=== PATIENT | female | born 1995 | race Caucasian/White ===

== ENCOUNTER 2016-06-28 13:46 | Emergency (ER) | payer MEDICAID ==
[~2016-06-28] VITALS: Ht 157.5 cm; Wt 50.0 kg
[~2016-06-28 13:46] MED LIST: FERR27TA PO; PREN1TAB49 PO; PRO20 PO
[2016-06-28 13:56] VITALS: Ht 157.5 cm; Wt 50.0 kg
[2016-06-28] MEDS ORDERED: AMO500 PO (14:43)
[2016-06-28] MEDS ORDERED: PRED20TA PO (14:43)
--- NOTE | 2016-06-28 14:47 | ERD ---
ER Documentation Chief Complaint Date/Time DATE: 06/28/16 TIME: 14:46 Chief Complaint Complains of a sorethroat x 3 days HPI Patient is a 20-year-old female who is otherwise healthy complaining of sick 3 days of swollen tonsils and sore throat. Pain is 8 out of 10 and worse with swallowing but she is tolerating oral intake. Denies fever. Denies cough. Denies abdominal pain. Denies any chest pain or shortness of breath. ROS All systems reviewed and are negative except as per history of present illness. Medications Home Meds Active Scripts Prednisone* (Prednisone*) 20 Mg Tab, 40 MG PO DAILY for 4 Days, TAB Prov:HOLLY SKINNER PA-C 06/28/16 Amoxicillin* (Amoxicillin*) 500 Mg Cap, 500 MG PO BID for 7 Days, CAP Prov:HOLLY SKINNER PA-C 06/28/16 Reported Medications Nifedipine* (Procardia*) 20 Mg Cap, 20 MG PO 07/15/12 Ferrous Sulfate (Iron) 1 Tab Tablet, 1 TAB PO DAILY 05/07/12 Vits W-Ca,Fe,Fa(<1MG) () 1 Tab Tablet, 1 TAB PO DAILY 05/07/12 Allergies Allergies: Coded Allergies: No Known Allergy (Verified , 07/26/12) FmHx Family History: No diabetes Physical Exam Vitals Vital Signs Date Time Temp Pulse Resp B/P Pulse Ox O2 Delivery O2 Flow Rate FiO2 06/28/16 13:56 98.8 127 20 154/77 98 Physical Exam General: well developed, well nourished, alert, nontoxic, no distress Head: normocephalic, atraumatic Neck: Supple, nontender, no lymphadenopathy, no midline tenderness Ears: no tenderness over mastoids bilaterally, TMs nonerythematous, no exudates in canal Oropharynx: Bilateral tonsillar erythema and edema with scant exudate, uvula midline, no kissing tonsils Respiratory: Clear to auscaultation bilaterally, speaks in full sentences, no use of accesory muscles or labored breathing, no rales, ronchi, or wheezing Cardiovascular: RRR, No murmurs Procedures/MDM 20-year-old female presents with exudative pharyngitis. Her examination is otherwise normal she is tolerating oral intake. I doubt peritonsillar abscess. She is afebrile but does have elevated heart rate 127. I reviewed this case with and we agree she is suitable for outpatient management with antibiotic outpatient therapy. Patient was given prescription for amoxicillin and a short course of prednisone. Recommended this patient follow up with her primary care doctor within 48 hours or return to the emergency room for any worsening of symptoms. However this time I do believe there is suitable for outpatient management. I answered all their questions and they agreed with the plan and were discharged home. Departure Diagnosis: Primary Impression: Pharyngitis Condition: Stable Patient Instructions: Pharyngitis, Strep (Presumed) Additional Instructions: Call your primary care doctor TOMORROW for an appointment during the next 1-2 days.See the doctor sooner or return here if your condition worsens before your appointment time. HOLLY SKINNER PA-C Jun 28, 2016 14:47
== END 2016-06-28 14:43 | disposition home or self-care (01) ==
LOC: FTE 13:46 → E/R 14:43
DX: J02.9 Acute pharyngitis, unspecified (principal)
CPT/HCPCS: 99284

== ENCOUNTER 2016-08-28 19:16 | Emergency (ER) | payer MEDICAID ==
[~2016-08-28] VITALS: Ht 160 cm; Wt 49.5 kg
[~2016-08-28 19:16] MED LIST changes: +AMO500 PO; +PRED20TA PO
[2016-08-28 19:21] VITALS: Ht 160 cm; Wt 49.5 kg
[2016-08-28] MEDS ORDERED: ONDANSETRON (ODT) 4 MG TAB ODT STA (19:49)
[2016-08-28] MEDS ORDERED: ACETAMINOPHEN 325 MG TAB PO ONE (20:00)
--- NOTE | 2016-08-28 20:29 | RADRPT ---
PROCEDURE: US Pelvis. CLINICAL INDICATION: Pelvic pain and fullness. TECHNIQUE: Multiple sonographic images of the pelvis were obtained utilizing a transabdominal and endovaginal technique. The images were reviewed on a PACS workstation. COMPARISON: None. FINDINGS: The uterus is visualized and measures 7.3 cm sagittal by 3.6 cm AP by 4.6 cm transverse.. The endome trial echo complex is normal and measures 4.7 mm.. There is no evidence for free fluid. The right ov madhuri has a normal echotexture and measures 2.4 x 1.5 x 1.8 cm . The left ovary has a normal echotext ure and measures 5 x 3.2 x 3.6 cm. No adnexal masses are noted. IMPRESSION: Unremarkable pelvic ultrasound. RPTAT:AAJJ Physician Christian Date Time Electronically viewed and signed by Physician Christian on 08/28/2016 20:29 DICK/
[2016-08-28 20:42] LABS: URINE BLOOD (Dip) POC Trace-intact (NEGATIVE)
[2016-08-28] MEDS ORDERED: ONDA4TAB14 PO (21:23)
[2016-08-28] MEDS ORDERED: ACET500C5 PO (21:23)
--- NOTE | 2016-08-28 21:39 | ERD ---
ER Documentation Chief Complaint Date/Time DATE: 08/28/16 TIME: 21:35 Chief Complaint LLQ abd pain x 1 month HPI Patient is a 21-year-old female with no past medical history who presents to the ED with left-sided pelvic pain on and off for the last 2 months. She states that she has pain with intercourse occasionally. She denies dysuria urgency. Patient is A0. Denies vaginal bleeding. States that her last normal menstrual period was . She states that she could possibly be but is not sure. She would like to get tested for . She denies headache or dizziness, neck pain or neck stiffness. Denies chest pain, cough, shortness of breath or difficulty breathing. States that she is occasionally nauseous with no vomiting. Last bowel movement was today. Denies diarrhea or constipation. No other complaints. Denies fever or chills. ROS All systems reviewed and are negative except as per history of present illness. Medications Home Meds Active Scripts Ondansetron (Ondansetron Odt) 4 Mg Tab.rapdis, 4 MG PO Q6H Y for NAUSEA AND/OR VOMITING, #10 TAB Prov:UNA PANDEY PA-C 08/28/16 Acetaminophen* (Tylophen*) 500 Mg Capsule, 1 CAP PO Q6H Y for PAIN AND OR ELEVATED TEMP, #20 CAP Prov:UNA PANDEY PA-C 08/28/16 Prednisone* (Prednisone*) 20 Mg Tab, 40 MG PO DAILY for 4 Days, TAB Prov:HOLLY SKINNER PA-C 06/28/16 Amoxicillin* (Amoxicillin*) 500 Mg Cap, 500 MG PO BID for 7 Days, CAP Prov:HOLLY SKINNER PA-C 06/28/16 Reported Medications Nifedipine* (Procardia*) 20 Mg Cap, 20 MG PO 07/15/12 Ferrous Sulfate (Iron) 1 Tab Tablet, 1 TAB PO DAILY 05/07/12 Vits W-Ca,Fe,Fa(<1MG) () 1 Tab Tablet, 1 TAB PO DAILY 05/07/12 Allergies Allergies: Coded Allergies: No Known Allergy (Verified , 07/26/12) PMhx/Soc History of Surgery: Yes (vag I&D 01/01/16) Anesthesia Reaction: No Hx Neurological Disorder: No Hx Respiratory Disorders: No Hx Cardiac Disorders: No Hx Psychiatric Problems: No Hx Miscellaneous Medical Probl: No (-2 Para-1 abd-1) Hx Alcohol Use: No Hx Substance Use: No Hx Tobacco Use: No Smoking Status: Never smoker FmHx Family History: No coronary disease, No diabetes, No other Physical Exam Vitals Vital Signs Date Time Temp Pulse Resp B/P Pulse Ox O2 Delivery O2 Flow Rate FiO2 08/28/16 19:21 98.4 124 20 142/65 100 Physical Exam GENERAL: Well-developed, well-nourished female. Appears in no acute distress. HEAD: Normocephalic, atraumatic. EYES: Pupils are equally reactive bilaterally. EOMs grossly intact. No conjunctival erythema. ENT: Moist mucous membranes. No uvula deviation. No kissing tonsils. No exudates. NECK: Supple. No lymphadenopathy or thyromegaly. No meningismus. negative kernig. negative brudinski. LUNG: Clear to auscultation bilaterally. No rhonchi, wheezing, rales or coarse breath sounds. HEART: Regular rate and rhythm. No murmurs, rubs or gallops. ABDOMEN: No scars, ecchymosis or rashes noted. Soft, nontender, and nondistended. Positive bowel sounds in all four quadrants. No rebound tenderness , no guarding. (-) McBurneys point tenderness. No CVA tenderness. BACK: No midline tenderness. Extremities: Equal pulses bilaterally. No peripheral clubbing, cyanosis or edema. No unilateral leg swelling. NEUROLOGIC: Alert and oriented. Moving all four extremities. 5/5 strength in all extremities. Normal speech. Steady gait. SKIN: Normal color. Warm and dry. No rashes or lesions. Capillary refill < 2 seconds Results 24 hrs Laboratory Tests Test 08/28/16 20:45 Bedside Urine pH (LAB) 7.0 Bedside Urine Protein (LAB) Negative Bedside Urine Glucose (UA) Negative Bedside Urine Ketones (LAB) Negative Bedside Urine Blood Trace-intact Bedside Urine Nitrite (LAB) Negative Bedside Urine Leukocyte Esterase (L Negative Current Medications Medications (Trade) Dose Ordered Sig/Dom Route PRN Reason Start Time Stop Time Status Last Admin Dose Admin Acetaminophen (Tylenol Tab) 650 mg ONCE ONCE PO 08/28/16 20:00 08/28/16 20:01 DC 08/28/16 20:20 Ondansetron HCl (Zofran Odt) 4 mg ONCE STAT ODT 08/28/16 19:49 08/28/16 19:51 DC 08/28/16 20:19 Procedures/MDM ER COURSE: I kept the patient and/or family informed of laboratory and diagnostic imaging results throughout the emergency room course. IMAGING STUDIES [place] [id number] Radiology Main Line: [phone] DIAGNOSTIC IMAGING REPORT Patient: TERESITA SIMMONS : 1995 Age: 21 Sex: F MR #: [id number] DOS: 08/28/16 1951 Ordering MD: UNA PANDEY PA-C Location: [facility] Room/Bed: PROCEDURE: US Pelvis. CLINICAL INDICATION: Pelvic pain and fullness. TECHNIQUE: Multiple sonographic images of the pelvis were obtained utilizing a transabdominal and endovaginal technique. The images were reviewed on a PACS workstation. COMPARISON: None. FINDINGS: The uterus is visualized and measures 7.3 cm sagittal by 3.6 cm AP by 4.6 cm transverse.. The endometrial echo complex is normal and measures 4.7 mm.. There is no evidence for free fluid. The right ovary has a normal echotexture and measures 2.4 x 1.5 x 1.8 cm . The left ovary has a normal echotexture and measures 5 x 3.2 x 3.6 cm. No adnexal masses are noted. IMPRESSION: Unremarkable pelvic ultrasound. RPTAT:AAJJ Physician Crhistian Date Time Electronically viewed and signed by Physician Christian on 08/28/2016 20:29 JM/ CC: UNA PANDEY PA-C medications Tylenol, Zofran. Tolerated well with no adverse reaction. LABORATORY STUDIES Urine dip was negative for nitrites, leukocytes or hematuria. Negative test MEDICAL DECISION MAKING: This is a 21-year-old female who presents with pelvic pain 2 months. Vital signs were reviewed. Patient is afebrile. Patient is not hypoxic. Patient is not toxic or ill-appearing. Patient's ultrasound is read by radiologist unremarkable. Patient had a negative training test and her urine was negative for nitrites, leukocytes or hematuria. Patient has pelvic pain of unknown etiology. Low suspicion for ovarian torsion, PID, tuboovarian abscess, ectopic , bowel obstruction, pyelonephritis, UTI, appendicitis, cervicitis, septic , molar , HELLP syndrome, preeclampsia, eclampsia, placenta previa, placenta abruptia. Low suspicion for ACS, AAA, perforated ulcer, bowel obstruction, cholecystitis, choledocholithiasis, cholangitis, pancreatitis, hepatic abscess, appendicitis, diverticulitis, gastroenteritis, hepatitis, peptic ulcer disease, HELLP syndrome. DISCHARGE: At this time, patient is stable for discharge and outpatient management with no new complaints during the ER course. Patient was sent home with Tylenol, Zofran and names of clinics to follow-up with. Copy of all imaging reports was given to patient.. Patient will be discharged home with instructions to recheck for new or worsening symptoms such as fever, nausea, weakness, LOC and to follow up with primary care in the next 1-2 days. Patient was advised to return to the ER for any new or worsening symptoms. Plan was discussed and patient and/or family understands and agrees. Home instructions were given. Departure Diagnosis: Primary Impression: Pelvic pain Condition: Stable Patient Instructions: Pelvic Pain, Unknown Cause Referrals: [facility] YOU HAVE RECEIVED A MEDICAL SCREENING EXAM AND THE RESULTS INDICATE THAT YOU DO NOT HAVE A CONDITION THAT REQUIRES URGENT TREATMENT IN THE EMERGENCY DEPARTMENT. FURTHER EVALUATION AND TREATMENT OF YOUR CONDITION CAN WAIT UNTIL YOU ARE SEEN IN YOUR DOCTORS OFFICE WITHIN THE NEXT 1-2 DAYS. IT IS YOUR RESPONSIBILITY TO MAKE AN APPOINTMENT FOR FOLOW-UP CARE. IF YOU HAVE A PRIMARY DOCTOR --you should call your primary doctor and schedule an appointment IF YOU DO NOT HAVE A PRIMARY DOCTOR YOU CAN CALL OUR PHYSICIAN REFERRAL HOTLINE AT IF YOU CAN NOT AFFORD TO SEE A PHYSICIAN YOU CAN CHOSE FROM THE FOLLOWING [facility] CLINICS [facility] [address] [facility]. [facility] [address] [facility]. [facility] [address] [facility] [facility] [address] [facility]. [facility] [address] [facility]. [facility] [address] Additional Instructions: Call your primary care doctor TOMORROW for an appointment during the next 1-2 days.See the doctor sooner or return here if your condition worsens before your appointment time. UNA PANDEY PA-C August 28, 2016 21:39
== END 2016-08-28 22:48 | disposition home or self-care (01) ==
LOC: FTE 19:16
DX: R10.2 Pelvic and perineal pain (principal)
CPT/HCPCS: 76856; 81003; Z7502; Z7610

== ENCOUNTER 2018-06-20 11:29 | Emergency (ER) | payer SELFPAY ==
[~2018-06-20] VITALS: Ht 167.6 cm; Wt 48.7 kg
[~2018-06-20 11:29] MED LIST changes: +ACET500C5 PO; -AMO500 PO; +AMOX500C2 PO; +ONDA4TAB14 PO
[2018-06-20 12:06] VITALS: BP 131/75; PULSE 110; RESP 20; Ht 167.6 cm; Wt 48.7 kg
== END 2018-06-20 14:51 | disposition left against medical advice (07) ==
LOC: FTE 11:29
DX: Z53.21 Procedure and treatment not carried out due to patient leaving prior to being seen by health care provider (principal)